=== PATIENT | female | born 1995 | race Caucasian/White ===

== ENCOUNTER 2022-04-21 19:27 | Emergency (ER) | payer OTHER, MEDICAID, SELFPAY ==
[2022-04-21 19:35] VITALS: BP 125/88; PULSE 98; RESP 18; TEMP 35.6; O2SAT 99; BMI 37.1
--- NOTE | 2022-04-21 19:57 | DI.US.S_ITS ---
PROCEDURE: US ABDOMEN COMPLETE INDICATIONS: hx splenomegaly after mono, patient states feels similar. TECHNIQUE: Real-time scanning was performed of the abdominal and retroperitoneal organs, with image documentation. COMPARISON: None. FINDINGS: Liver: Liver is normal in size and homogeneous in echotexture. Gallbladder: The gallbladder appears partially contracted and the gallbladder wall is not abnormally thickened. No calculus within the gallbladder lumen is suspected. Biliary ducts: Intrahepatic bile ducts are non-dilated. Extrahepatic bile duct caliber measures 4.8 mm. Normal is 6-7 mm or less in diameter, or 10 mm or less post-cholecystectomy. Pancreas: Visualized portions of the pancreas are sonographically normal. Spleen: Spleen is normal in size and homogeneous in echotexture. Kidneys: Kidneys are normal in size and echotexture. Right kidney measures 11.3 cm long; left kidney measures 11.2 cm long. No hydronephrosis or nephrolithiasis. No solid masses. There may be a nonobstructive left inferior posterior collecting system calculus measuring approximately 5 x 6 mm. Aorta: Visualized aorta is normal in caliber at less than 3 cm. Iliacs: Proximal common iliac arteries are normal in caliber at less than 2.5 cm. IVC: Intrahepatic inferior vena cava is patent. Miscellaneous: No free abdominal fluid. IMPRESSION: Suspect nonobstructive lower 3rd collecting system calculus measuring approximately 5 x 6 mm left kidney. No other abnormality seen. Dictated by: Gokul Thomas M.D. on 04/21/2022 at 20:51 Approved by: Gokul Thomas M.D. on 04/21/2022 at 20:53
[2022-04-21 20:03] LABS: Add Manual Diff / Slide Review NO; Basophils Absolute Auto 0 /uL (0-100); Basophils Percent Auto 0.6 % (0-2); Eosinophils Absolute Auto 200 /uL (0-450); Eosinophils Percent Auto 2.1 % (2-4); Hemoglobin 14.6 g/dL (12.0-16.0); Lymphocytes Absolute Auto 1700 /uL (1100-4500); Lymphocytes Percent Auto 20.5 % (25-40); Mean Corpuscular HGB Conc 34.8 % (30-36); Mean Corpuscular Hemoglobin 30.2 PG (26-34); Mean Corpuscular Volume 86.6 fL (80-100); Monocytes Absolute Auto 900 /uL (0-900); Monocytes Percent Auto 10.2 % (3-14); Neutrophils Absolute Auto 5600 /uL (1500-7000); Neutrophils Percent Auto 66.6 % (50-75); Platelet Count 301 X10^3/uL (150-400); Red Blood Cell Count 4.85 X10^6/uL (4.0-5.2); Red Cell Distribution Width 13.4 % (11.6-14.8); White Blood Cell Count 8.4 X10^3/uL (4.5-11.0)
[2022-04-21 20:12] LABS: Alanine Aminotransferase 30 IU/L (<35); Albumin 5.1 g/dL (3.5-5.0); Albumin Globulin Ratio 1.2 (1.0-2.8); Alkaline Phosphatase 96 U/L (38-126); Aspartate Aminotransferase 24 IU/L (14-36); BUN Creatinine Ratio 12.7 (6-22); Bilirubin Total 0.3 mg/dL (0.2-1.3); Blood Urea Nitrogen 9 mg/dL (7-17); Calcium 10.2 mg/dL (8.4-10.2); Carbon Dioxide 26 mmol/L (22-32); Chloride 102 mmol/L (98-107); Estimated Glomerular Filt Rate > 60 mL/min (>60); Globulin 4.1 g/dL (1.7-4.1); Glucose 122 mg/dL (70-100); HEMOLYSIS < 15 (0-50); Lipase 122 U/L (23-300); Monotest Negative (Negative); Sodium 141 mmol/L (137-145); Total Protein 9.2 g/dL (6.3-8.2)
[2022-04-21 20:49] LABS: Adenovirus Not Detected (Not Detect); B. parapertussis Not Detected (Not Detecte); Bordetella pertussis Not Detected (Not Detecte); Chlamydophila pneumoniae Not Detected (Not Detect); Coronavirus 229E Not Detected (Not Detect); Coronavirus HKU1 Not Detected (Not Detect); Coronavirus NL 63 Not Detected (Not Detect); Coronavirus OC43 Detected (Not Detect); Human Metapneumovirus Not Detected (Not Detect); Human Rhinovirus/Enterovirus Not Detected (Not Detect); Influenza A Not Detected (Not Detect); Influenza B Not Detected (Not Detect); Mycoplasma pneumoniae Not Detected (Not Detect); Parainfluenza Virus 1 Not Detected (Not Detect); Parainfluenza Virus 2 Not Detected (Not Detect); Parainfluenza Virus 3 Not Detected (Not Detect); Parainfluenza Virus 4 Not Detected (Not Detect); Respiratory Syncytial Virus Not Detected (Not Detect); SARS- CoV-2 Not Detected (Not Detecte)
--- NOTE | 2022-04-21 21:05 | ED_ITS ---
HPI - General Adult General Chief complaint: Abdominal Pain Stated complaint: Cough, L side abd pain, worsening Time Seen by Provider: 04/21/22 19:57 Source: patient Mode of arrival: Ambulatory Limitations: no limitations History of Present Illness HPI narrative: This is a 26-year-old female with history of endometriosis, PCOS with history of mono who developed splenomegaly during that time. Patient states she is had nasal congestion, felt generally tired without fevers but has had a mild cough and had increasing left-sided abdominal which she states has been come worse today. Patient states no chest pain she indicates it is more in the abdomen. She states it feels full similar to when her spleen was enlarged for mono. She states she is had nausea mostly in the mornings not really during the rest of t he day. She is had 1 or 2 episodes of vomiting each day but not persistent. Patient has had some loose stools, no black or blood. No back no flank pain. Patient states she has had kidney stones before this feels different. She denies any lower abdominal pain. No dysuria, urgency or frequency. No new vaginal bleeding or discharge. She does have a Nexplanon in place to help with her PCOS/endometriosis. Patient states she is had prior ex lap to evaluate for endometriosis and D&C. She denies other surgeries. She has multiple allergies to medications. She does use tobacco, occasional alcohol, occasional THC but not regularly. Related Data Previous Rx's Medication Instructions Recorded ondansetron 4 mg disintegrating 4 mg PO QID PRN nausea and 04/21/22 tablet vomiting #5 tabs Allergies Allergy/AdvReac Type Severity Reaction Status Date / Time Cephalosporins Allergy Verified 04/21/22 19:34 metformin Allergy Verified 04/21/22 19:34 nitrofurantoin Allergy Verified 04/21/22 19:34 [From Macrobid] metoclopramide [From Reglan] AdvReac Verified 04/21/22 19:35 Review of Systems Review of Systems ROS Unobtainable: All systems reviewed & are unremarkable except as noted in HPI and below Patient History Social History Smoking Status: Current some day smoker Smoking Status: Current some day smoker tobacco type: vaping Substance Use Type: does not use Exam Narrative Exam Narrative: GENERAL: Alert and oriented x three, obese female in mild distress. HEENT: Head normocephalic, atraumatic, EOMI, pupils reactive, face symmetric, moist mucous membranes NECK: Supple, full range of motion CARDIOVASCULAR: Regular rate and rhythm without murmurs, rubs or gallops. RESPIRATORY: Breath sounds equal bilaterally, no wheezes rales or rhonchi. No tachypnea. No accessory muscle use. ABDOMEN: Soft, patient has some mild left upper quadrant tenderness.. Normoactive bowel sounds all 4 quadrants. No guarding or rebound, rigidity, no mass, no hepatosplenomegaly appreciated. Patient does have some tenderness on the left or rib as well but also in the soft tissue. : No CVA tenderness EXTREMITIES: Normal range of motion, no clubbing or edema. Neurovascularly intact NEUROLOGICAL: Cranial nerves II through XII grossly intact. Moving all extremities SKIN: Warm, dry, no petechiae, no rashes or lesions. Initial Vital Signs Initial Vital Signs: Vital Signs Temperature 96.0 F L 04/21/22 19:35 Pulse Rate 98 H 04/21/22 19:35 Respiratory Rate 18 04/21/22 19:35 Blood Pressure 125/88 04/21/22 19:35 Pulse Oximetry 99 04/21/22 19:35 Oxygen Delivery Method 04/21/22 19:35 Course Orders Ordered: Discontinued Medications Ketorolac Tromethamine (Ketorolac 30 Mg/Ml Vial) 15 mg IV NOW ONE Stop: 04/21/22 21:16 Last Admin: 04/21/22 21:26 Dose: 15 mg Documented By: PENNIE Ondansetron HCl (Ondansetron 4 Mg Odt) 4 mg PO NOW PRN PRN Reason: Nausea And Vomiting Ondansetron HCl (Ondansetron 4 Mg Odt Prepack) 1 bottle MISC SEEINSTR ONE Stop: 04/21/22 21:27 Last Admin: 04/21/22 21:28 Dose: 1 bottle Documented By: PENNIE Vital Signs Vital signs: Vital Signs - 8 hr 04/21/22 21:29 Pulse Rate 94 H Blood Pressure 114/62 Pulse Oximetry 99 Oxygen Delivery Method Room Air Medical Decision Making Lab Data 04/21/22 19:50 04/21/22 19:50 Labs: Lab Results 04/21/22 04/21/22 04/21/22 Range/Units 19:45 19:50 19:50 WBC 8.4 (4.5-11.0) X10^3/uL RBC 4.85 (4.0-5.2) X10^6/uL Hgb 14.6 (12.0-16.0) g/dL Hct 42.0 (36-46) % MCV 86.6 (80-100) fL MCH 30.2 (26-34) PG MCHC 34.8 (30-36) % RDW 13.4 (11.6-14.8) % Plt Count 301 (150-400) X10^3/uL Neut % (Auto) 66.6 (50-75) % Lymph % (Auto) 20.5 L (25-40) % [place] % (Auto) 10.2 (3-14) % Eos % (Auto) 2.1 (2-4) % Baso % (Auto) 0.6 (0-2) % Neut # (Auto) 5600 (9923-6644) /uL Lymph # (Auto) 1700 (5270-4101) /uL [place] # (Auto) 900 (0-900) /uL Eos # (Auto) 200 (0-450) /uL Baso # (Auto) 0 (0-100) /uL Sodium 141 (137-145) mmol/L Potassium 4.0 (3.4-5.1) mmol/L Chloride 102 (98-107) mmol/L Carbon Dioxide 26 (22-32) mmol/L BUN 9 (7-17) mg/dL Creatinine 0.71 (0.52-1.04) mg/dL Estimated GFR > 60 (>60) mL/min BUN/Creatinine Ratio 12.7 (6-22) Glucose 122 H (70-100) mg/dL Calcium 10.2 (8.4-10.2) mg/dL Total Bilirubin 0.3 (0.2-1.3) mg/dL AST 24 (14-36) IU/L ALT 30 (<35) IU/L Alkaline Phosphatase 96 (38-126) U/L Total Protein 9.2 H (6.3-8.2) g/dL Albumin 5.1 H (3.5-5.0) g/dL Globulin 4.1 (1.7-4.1) g/dL Albumin/Globulin Ratio 1.2 (1.0-2.8) Lipase 122 (23-300) U/L Chlamy pneumoniae PCR Not detected (Not Detect) Adenovirus (PCR) Not detected (Not Detect) B. pertussis DNA (PCR) Not detected (Not Detecte) B.parapertussis DNA PCR Not detected (Not Detecte) Coronavirus OC43 (PCR) Detected H (Not Detect) Coronavirus HKU1 (PCR) Not detected (Not Detect) Coronavirus 229E (PCR) Not detected (Not Detect) SARS-CoV-2 (PCR) Not detected (Not Detecte) Coronavirus NL63 (PCR) Not detected (Not Detect) Monoscreen (Negative) Human Metapneumovir PCR Not detected (Not Detect) Influenza Type A (PCR) Not detected (Not Detect) Influenza Type B (PCR) Not detected (Not Detect) M. pneumoniae (PCR) Not detected (Not Detect) Parainfluenza 1 (PCR) Not detected (Not Detect) Parainfluenza 2 (PCR) Not detected (Not Detect) Parainfluenza 3 (PCR) Not detected (Not Detect) Parainfluenza 4 (PCR) Not detected (Not Detect) RSV (PCR) Not detected (Not Detect) Entero/Rhino (PCR) Not detected (Not Detect) 04/21/22 Range/Units 19:50 WBC (4.5-11.0) X10^3/uL RBC (4.0-5.2) X10^6/uL Hgb (12.0-16.0) g/dL Hct (36-46) % MCV (80-100) fL MCH (26-34) PG MCHC (30-36) % RDW (11.6-14.8) % Plt Count (150-400) X10^3/uL Neut % (Auto) (50-75) % Lymph % (Auto) (25-40) % [place] % (Auto) (3-14) % Eos % (Auto) (2-4) % Baso % (Auto) (0-2) % Neut # (Auto) (3062-8744) /uL Lymph # (Auto) (2210-3512) /uL [place] # (Auto) (0-900) /uL Eos # (Auto) (0-450) /uL Baso # (Auto) (0-100) /uL Sodium (137-145) mmol/L Potassium (3.4-5.1) mmol/L Chloride (98-107) mmol/L Carbon Dioxide (22-32) mmol/L BUN (7-17) mg/dL Creatinine (0.52-1.04) mg/dL Estimated GFR (>60) mL/min BUN/Creatinine Ratio (6-22) Glucose (70-100) mg/dL Calcium (8.4-10.2) mg/dL Total Bilirubin (0.2-1.3) mg/dL AST (14-36) IU/L ALT (<35) IU/L Alkaline Phosphatase (38-126) U/L Total Protein (6.3-8.2) g/dL Albumin (3.5-5.0) g/dL Globulin (1.7-4.1) g/dL Albumin/Globulin Ratio (1.0-2.8) Lipase (23-300) U/L Chlamy pneumoniae PCR (Not Detect) Adenovirus (PCR) (Not Detect) B. pertussis DNA (PCR) (Not Detecte) B.parapertussis DNA PCR (Not Detecte) Coronavirus OC43 (PCR) (Not Detect) Coronavirus HKU1 (PCR) (Not Detect) Coronavirus 229E (PCR) (Not Detect) SARS-CoV-2 (PCR) (Not Detecte) Coronavirus NL63 (PCR) (Not Detect) Monoscreen Negative (Negative) Human Metapneumovir PCR (Not Detect) Influenza Type A (PCR) (Not Detect) Influenza Type B (PCR) (Not Detect) M. pneumoniae (PCR) (Not Detect) Parainfluenza 1 (PCR) (Not Detect) Parainfluenza 2 (PCR) (Not Detect) Parainfluenza 3 (PCR) (Not Detect) Parainfluenza 4 (PCR) (Not Detect) RSV (PCR) (Not Detect) Entero/Rhino (PCR) (Not Detect) Point of Care Testing Test Results Negative Urine Dip Bedside Urine Glucose Negative Bedside Urine Bilirubin - Negative Bedside Urine Ketone - Negative Urine Specific [place] 1.025 Bedside Urine Occult Blood - Negative Bedside Urine pH 6 Bedside Urine Protein - Negative Bedside Urine Urobilinogen - Negative Bedside Urine Nitrite - Negative Bedside Urine Leukocytes - Negative Esterase Point of care testing: Point of Care Testing Test Results Negative Urine Dip Bedside Urine Glucose Negative Bedside Urine Bilirubin - Negative Bedside Urine Ketone - Negative Urine Specific [place] 1.025 Bedside Urine Occult Blood - Negative Bedside Urine pH 6 Bedside Urine Protein - Negative Bedside Urine Urobilinogen - Negative Bedside Urine Nitrite - Negative Bedside Urine Leukocytes - Negative Esterase Imaging Data US - abdomen: Radiologist's Impression: Sasha Atkinson??26??F??1995 ? Allergy/Adv: Cephalosporins, metformin, nitrofurantoin, metoclopramide (More??) Close Abdomen Ultrasound (Signed) WilliamGokul - 04/21/22 Launch?[address] [address] Ultrasound Report Signed Patient: Sasha Atkinson MR#: [id number] : 1995 Acct:[id number] Age/Sex: 26 / F Date of Service: 04/21/22 Loc: ED Accession Number: [id number] ?? Procedure: US abdomen complete Ordering Provider: Em Monroy D.O. PROCEDURE:? US ABDOMEN COMPLETE ? INDICATIONS:? hx splenomegaly after mono, patient states feels similar. ? TECHNIQUE:? Real-time scanning was performed of the abdominal and retroperitoneal organs, with image documentation.? ? COMPARISON:? None. ? FINDINGS:? ? Liver:? Liver is normal in size and homogeneous in echotexture.? ? Gallbladder:? The gallbladder appears partially contracted and the gallbladder wall is not abnormally thickened.? No calculus within the gallbladder lumen is suspected.? ? Biliary ducts:? Intrahepatic bile ducts are non-dilated.? Extrahepatic bile duct caliber measures 4.8 mm.? Normal is 6-7 mm or less in diameter, or 10 mm or less post-cholecystectomy.? ? Pancreas:? Visualized portions of the pancreas are sonographically normal.? ? Spleen:? Spleen is normal in size and homogeneous in echotexture.? ? Kidneys:? Kidneys are normal in size and echotexture.? Right kidney measures 11.3 cm long; left kidney measures 11.2 cm long.? No hydronephrosis or nephrolithiasis.? No solid masses.? There may be a nonobstructive left inferior posterior collecting system calculus measuring approximately 5 x 6 mm. ? Aorta:? Visualized aorta is normal in caliber at less than 3 cm.? ? Iliacs:? Proximal common iliac arteries are normal in caliber at less than 2.5 cm.? ? IVC:? Intrahepatic inferior vena cava is patent.? ? Miscellaneous:? No free abdominal fluid.? ? ? IMPRESSION:? Suspect nonobstructive lower 3rd collecting system calculus measuring approximately 5 x 6 mm left kidney.? No other abnormality seen. ? Dictated by: Gokul Thomas M.D. on 04/21/2022 at 20:51 ? ? Approved by: Gokul Thomas M.D. on 04/21/2022 at 20:53?? MDM Narrative Medical decision making narrative: This is a 26-year-old female with viral upper respiratory symptoms for about a week plus, patient also notes some left upper quadrant discomfort states she had mono in her teen years with splenomegaly this feels very similar. She states she just had to lay around for long time and take ibuprofen until improved. Patient respiratory panel is positive for coronavirus OC 43, labs are otherwise negative, glucose is 122 total protein and albumin are elevated. Lipase is negative LFTs are negative. Patient did have abdominal ultrasound which overall shows no major changes besides there is a nonobstructive left calculus approximately 5 x 6 mm. Patient does have any back or flank pain. Her pain is very much more upper quadrant. She is negative urine as well as point of care . Plan for a dose of Toradol, patient exam is overall reassuring and plan for short course of pain medication, antinausea medicine with return precautions. Discharge Plan Departure Patient Disposition: Home Clinical Impression: Coronavirus infection Activity Restrictions/Additional Instructions: You have tested positive for coronavirus OC43 this is not the same as COVID but is a viral illness. You can take Tylenol up to a 1000 mg every 6 hours as needed. You can take Zofran 1 tablet every 6 hours as needed for nausea. [facility] [place] Please return for persistent fevers, worsening abdominal pain, back or flank pain, persistent vomiting, black or bloody stools, passing out or other new or c oncerning changes. Prescriptions: New ondansetron 4 mg tablet,disintegrating 4 mg PO QID PRN (Reason: nausea and vomiting) Qty: 5 0RF Stand Alone Forms: Patient Portal/API
[2022-04-21] MEDS: KETOROLAC 30 MG/ML VIAL 15 MG IV (21:26)
[2022-04-21] MEDS: ONDANSETRON 4 MG ODT PREPACK 1 BOTTLE MISC (21:28)
[2022-04-21 21:29] VITALS: BP 114/62; PULSE 94; O2SAT 99
== END 2022-04-21 21:39 | disposition home or self-care (01) ==
PROVIDERS: Emergency Provider Emergency Medicine
DX: B34.2 Coronavirus infection, unspecified (principal); R05.9 Cough, unspecified; Z20.822 Contact with and (suspected) exposure to COVID-19
CPT/HCPCS: 36415; 76700; 80053; 81003; 81025; 83690; 85025; 86318; 87633; 96374; 99284; J1885

== ENCOUNTER 2023-07-24 14:14 | Emergency (ER) | payer OTHER, MEDICAID, SELFPAY ==
[2023-07-24 14:18] VITALS: BP 122/76; PULSE 85; RESP 16; TEMP 36.6; O2SAT 100; BMI 37.1
[2023-07-24] MEDS: ACETAMINOPHEN 325 MG TABLET 975 MG PO (15:18)
[2023-07-24] MEDS: KETOROLAC 30 MG/ML VIAL 15 MG IV (16:14)
[2023-07-24] MEDS: diphenhydrAMINE 50 MG/ML VIAL 25 MG IV (16:16)
[2023-07-24] MEDS: DEXAMETHASONE 10 MG/ML VIAL IV (16:16)
[2023-07-24] MEDS: SODIUM CHLORIDE 0.9% 1,000 ML 1000 ML IV (16:20)
--- NOTE | 2023-07-24 16:43 | ED.HEATRA ---
HPI - Head Injury <Leeann Bradley PA-C - Last Filed: 07/24/23 20:48> General Chief complaint: Head Injury Stated complaint: hit head t-1, headache, lightheaded, dizzy Time Seen by Provider: 07/24/23 15:33 Source: patient Mode of arrival: Ambulatory History of Present Illness HPI Narrative: 28-year-old woman presents with concern for a headache with photosensitivity. Patient states she has a history of migraines but yesterday she was playing with her nephew at the [employer] play area leaning down in forward and she stood up suddenly and hit the top of her head on a metal piece of the play area. She said she still she felt ?stunned? but did not fall to the ground or lose consciousness. She sat down at a table for awhile to relax and felt okay until that night just before bed when she developed a throbbing headache. She states the throbbing headache was at the top of her head. This morning when she woke up her headache was much more severe and since that time it has become more bothersome and feels much more like her migraines she has been extremely sensitive to sunlight today. She also endorses that she has been having chronic problems with I discomfort and thinks that she needs a new prescription as her glasses have been a problem for some time. She is unable to wear sunglasses because she does not wear contacts and needs glasses to see for driving. She had a friend drive her here today as she did not feel comfortable driving. She states her neck feels a little bit stiff but she can move it normally and has no sharp shooting pains. She has had a little bit of mild nausea but no vomiting, denies new vision change other than photosensitivity, gait difficulty coordination issues, numbness or tingling of the extremities or any other complaints. Related Data Previous Rx's Medication Instructions Recorded ondansetron 4 mg disintegrating 4 mg PO QID PRN nausea and 04/21/22 tablet vomiting #5 tabs davnqyjxtv-nzmfwbyqmlzuh-warxcetk 1 cap PO Q8H PRN pain 10 days #30 07/24/23 50 mg-300 mg-40 mg capsule caps (Fioricet) Allergies Allergy/AdvReac Type Severity Reaction Status Date / Time Cephalosporins Allergy Verified 05/22/24 14:20 metformin Allergy Verified 07/24/23 14:20 nitrofurantoin Allergy Verified 07/24/23 14:20 [From Macrobid] metoclopramide [From Reglan] AdvReac Verified 07/24/23 14:20 Review of Systems <Leeann Bradley PA-C - Last Filed: 07/24/23 20:48> Review of Systems Narrative: See HPI Patient History <Leeann Bradley PA-C - Last Filed: 07/24/23 20:48> Social History Smoking Status: Former smoker Smoking Status: Former smoker tobacco type: vaping Substance Use Type: does not use Exam <Leeann Bradley PA-C - Last Filed: 07/24/23 20:48> Narrative Exam Narrative: GENERAL: [28] year old patient appears stated age. Well-developed patient, in mild distress. HEAD: Atraumatic. Normocephalic. EYES: Pupils equal round and reactive. Poyf-zf-uinboeph Sensitivity to light. Extraocular motions intact. No scleral icterus. No injection or drainage. ENT: Nose without bleeding, purulent drainage. Throat without erythema, tonsillar hypertrophy or exudate. Uvula midline. Airway patent. NECK: Trachea midline. Non tender CARDIOVASCULAR: Regular rate and rhythm without murmurs, gallops, or rubs. RESPIRATORY: Clear to auscultation. Breath sounds equal bilaterally. No wheezes, rales, or rhonchi. EXTREMITIES: Equal client specialist. No edema or joint tenderness. BACK: No midline spinous process tenderness deformity or step-off. Nontender without deformity or crepitance. No flank tenderness. NEURO: AOx3. Cranial nerves 2-12 intact SKIN: No rash or erythema of visible areas Initial Vital Signs Initial Vital Signs: Vital Signs Temperature 97.8 F 07/24/23 14:18 Pulse Rate 85 07/24/23 14:18 Respiratory Rate 16 07/24/23 14:18 Blood Pressure 122/76 07/24/23 14:18 Pulse Oximetry 100 07/24/23 14:18 Oxygen Delivery Method Room Air 07/24/23 14:18 <Em Monroy DO - Last Filed: 07/27/23 04:45> Initial Vital Signs Initial Vital Signs: Vital Signs Temperature 97.8 F 07/24/23 14:18 Pulse Rate 85 07/24/23 14:18 Respiratory Rate 16 07/24/23 14:18 Blood Pressure 122/76 07/24/23 14:18 Pulse Oximetry 100 07/24/23 14:18 Oxygen Delivery Method Room Air 07/24/23 14:18 Scores <Leeann Bradley PA-C - Last Filed: 07/24/23 20:48> [place] Head Rule Age <16 years old: No Patient on blood thinners: No Seizure after injury: No Exclusion: Patient NOT Excluded, Proceed to next steps GCS < 15 at 2 hr post trauma: No Suspected open or depressed skull fracture: No Any sign of basilar skull fracture (hemotympanum, raccoon eyes, Montanez's sign, CSF jero-/rhinorrhea): No Two or more episodes of vomiting: No Age greater or equal to 65 years: No Retrograde amnesia to the event greater or equal to 30 min: No Dangerous Mechanism (pedestrian vs. mv, occupant ejected from mv, fall from >3 ft or > 5 stairs): No Recommendation: CT unnecessary <Em Monroy DO - Last Filed: 07/27/23 04:45> [place] Head Rule Exclusion: Patient NOT Excluded, Proceed to next steps Recommendation: CT unnecessary Course <RADHA Clarke Last Filed: 07/24/23 20:48> Orders Ordered: Discontinued Medications Acetaminophen (Acetaminophen 325 Mg Tablet) 975 mg PO NOW ONE Stop: 07/24/23 15:16 Last Admin: 07/24/23 15:18 Dose: 975 mg Documented By: ZOIE Dexamethasone (Dexamethasone 10 Mg/Ml Vial) 10 mg IV NOW ONE Stop: 07/24/23 15:52 Last Admin: 07/24/23 16:16 Dose: 10 mg Documented By: ZOIE Diphenhydramine HCl (Diphenhydramine 50 Mg/Ml Vial) 25 mg IV NOW ONE Stop: 07/24/23 15:52 Last Admin: 07/24/23 16:16 Dose: 25 mg Documented By: ZOIE Sodium Chloride (Normal Saline 0.9%) 1,000 mls @ 1,000 mls/hr IV BOLUS ONE Stop: 07/24/23 16:50 Last Infusion: 07/24/23 17:34 Dose: Infused Documented By: Admin: 07/24/23 16:20 Dose: 1,000 mls/hr Documented By: ZOIE Ketorolac Tromethamine (Ketorolac 30 Mg/Ml Vial) 15 mg IV NOW ONE Stop: 07/24/23 15:52 Last Admin: 07/24/23 16:14 Dose: 15 mg Documented By: ZOIE Vital Signs Vital signs: Vital Signs - 8 hr 07/24/23 14:18 07/24/23 17:34 Temperature 97.8 F 98.3 F Pulse Rate 85 74 Respiratory Rate 16 16 Blood Pressure 122/76 112/71 Pulse Oximetry 100 98 Oxygen Delivery Method Room Air Room Air <Em Monroy DO - Last Filed: 07/27/23 04:45> Orders Ordered: Discontinued Medications Acetaminophen (Acetaminophen 325 Mg Tablet) 975 mg PO NOW ONE Stop: 07/24/23 15:16 Last Admin: 07/24/23 15:18 Dose: 975 mg Documented By: ZOIE Dexamethasone (Dexamethasone 10 Mg/Ml Vial) 10 mg IV NOW ONE Stop: 07/24/23 15:52 Last Admin: 07/24/23 16:16 Dose: 10 mg Documented By: ZOIE Diphenhydramine HCl (Diphenhydramine 50 Mg/Ml Vial) 25 mg IV NOW ONE Stop: 07/24/23 15:52 Last Admin: 07/24/23 16:16 Dose: 25 mg Documented By: ZOIE Sodium Chloride (Normal Saline 0.9%) 1,000 mls @ 1,000 mls/hr IV BOLUS ONE Stop: 07/24/23 16:50 Last Infusion: 07/24/23 17:34 Dose: Infused Documented By: Admin: 07/24/23 16:20 Dose: 1,000 mls/hr Documented By: ZOIE Ketorolac Tromethamine (Ketorolac 30 Mg/Ml Vial) 15 mg IV NOW ONE Stop: 07/24/23 15:52 Last Admin: 07/24/23 16:14 Dose: 15 mg Documented By: ZOIE Vital Signs Vital signs: Vital Signs - 8 hr 07/24/23 14:18 07/24/23 17:34 Temperature 97.8 F 98.3 F Pulse Rate 85 74 Respiratory Rate 16 16 Blood Pressure 122/76 112/71 Pulse Oximetry 100 98 Oxygen Delivery Method Room Air Room Air MDM - Head Injury <Leeann Bradley PA-C - Last Filed: 07/24/23 20:48> Differential Diagnosis Differential diagnosis: Likely concussion without loss of consciousness and other (Migraine) Medical Records Attestation: I reviewed the patient's medical records. Treatment and disposition Shared decision making:: Shared decision-making was used to determining plan for evaluation stay in the emergency department treatment plan and plan for outpatient follow-up MDM Narrative Medical decision making narrative: Is a somewhat uncomfortable appearing 28-year-old woman with a history of migraines presenting with concern for headache worsening since this morning after she hit her head last night on some [employer] play equipment without loss of consciousness. [place] head CT rule shows no CT indicated. Patient has unremarkable neurologic exam today. She does have some mild photosensitivity, and significant headache consistent with her migraines. Suspect that the mild concussion she has triggered her migraine. After discussion with the patient treat for migraine with fluid bolus, Toradol and dexamethasone as well as 25 mg Benadryl. Patient also received Tylenol in the emergency department. She had significant improvement in symptoms stated that she still had a slight throbbing sensation consistent with the pain since her head injury, and some photosensitivity but generally improved overall headache. Prescription for Fioricet, patient advised to take her regular medications as prescribed, monitor for new or worsening symptoms, seek re-evaluation or call 911 if these develop. Based on mechanism low suspicion for intracranial hemorrhage or significant injury. Counseled regarding typical concussion symptoms. 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 Return precautions provided, follow-up plan discussed, all questions answered. Discharge Plan Departure Patient Disposition: Home Clinical Impression: Concussion without loss of consciousness Qualifiers: Encounter type: initial encounter Qualified Code(s): S06.0X0A - Concussion without loss of consciousness, initial encounter Migraine Qualifiers: Migraine type: unspecified Status migrainosus presence: without status migrainosus Intractability: not intractable Qualified Code(s): G43.909 - Migraine, unspecified, not intractable, without status migrainosus Instructions: Concussion Activity Restrictions/Additional Instructions: *You have been diagnosed with [concussion] *What to do: *Please continue to take your regular medications as directed. [ ] New medication prescriptions sent to your pharmacy: [ ] [ ] New medication written as a paper prescription [X ] No new medications given *Please follow up with your primary care provider in 2-3 days, call for an appointment. Let them know you were seen in the Emergency Department and that we ask that you be seen in follow up. We will electronically transmit a record of today's note if your PCP is in our system. You hit the top of her head yesterday when standing up on metal and have been having headache and light sensitivity since that time. I suspect that you have a concussion, we did not do a CT scan today as it is not indicated based on your symptoms and how this happened and your age. We did treat you for migraine as it seems that your concussion symptoms acting up were triggering a migraine for you. You may continue to have headaches related to the concussion some mild nausea and some light sensitivity for the next 5 days up to 3 weeks. I recommend you get plenty of rest monitor your symptoms make sure that you are treating her migraines with your medications as prescribed when needed. I am also prescribing an additional medication for you today called Fioricet that helps with headaches and migraine pain. If you develop new or concerning symptoms please make sure you seek re-evaluation. I hope you feel better soon. *If you do not have a primary care provider please contact the [facility] Resource line at [phone]. They will ask some questions about your medical history and help get you set up with a doctor in the community. *Return to Emergency Department if you should have any new, worsening or concerning symptoms, such as [fever greater than 101 F, shaking chills, worsening pain, persistent vomiting or other bothersome symptoms] Prescriptions: New optkznfmrp-ocxrtzpkfvkpq-zyzz [Fioricet] 50-300-40 mg capsule 1 cap PO Q8H PRN (Reason: pain) 10 Days Qty: 30 0RF No Action ondansetron 4 mg tablet,disintegrating 4 mg PO QID PRN (Reason: nausea and vomiting) Qty: 5 0RF Stand Alone Forms: Patient Portal/API ED Sign-out <Em Monroy, DO - Last Filed: 07/27/23 04:45> Cosign ED Attending Richelle Attestation: I was immediately available in the department for consultation.
[2023-07-24 17:34] VITALS: BP 112/71; PULSE 74; RESP 16; TEMP 36.8; O2SAT 98
== END 2023-07-24 17:35 | disposition home or self-care (01) ==
PROVIDERS: Emergency Provider Student in an Organized Health Care Education/Training Program
DX: S06.0X0A Concussion without loss of consciousness, initial encounter (principal); W22.8XXA Striking against or struck by other objects, initial encounter; G43.909 Migraine, unspecified, not intractable, without status migrainosus
CPT/HCPCS: 36415; 96374; 96375; 99284; J1100; J1200; J1885